=== PATIENT | female | born 1945 | race Caucasian/White ===

== ENCOUNTER → 2020-05-07 | Outpatient (CLI) | payer MEDICARE, BC ==
--- NOTE | 2020-05-07 16:17 | RAD ---
INDICATION: Screening for osteopenia/osteoporosis. Postmenopausal evaluation. COMPARISON: September 2006 TECHNIQUE: Bone densitometry was performed through the lumbar spine and proximal femur. IMPRESSION: Lumbar Spine: BMD: 1.32 T-Score: 1.2 Range: Normal. Increased by 15 percent from prior. Scoliotic curvature the spine with sclerosis which can be seen with degenerative changes. Proximal Femur: BMD: 0.69 T-Score: -2.2 Range: Osteopenic. Decreased by 3 percent from prior. World Health Organization Criteria for Bone Density: T-Score: > -1.0: Normal Range < -1.0 to -2.5: Osteopenic Range < -2.5: Osteoporotic Range Electronically signed by: Davin Shipman MD (05/07/2020 4:14 PM) [id number]
== END ==
LOC: DXRAD 11:44
PROVIDERS: ATTEND Family Medicine
DX: M81.0 Age-related osteoporosis without current pathological fracture (principal)
CPT/HCPCS: 77080